=== PATIENT | male | born 1955 | race Caucasian/White ===

== ENCOUNTER 2019-07-03 14:16 | Emergency (ER) | payer SELFPAY ==
[~2019-07-03] VITALS: Ht 182.8 cm; Wt 86.2 kg
--- NOTE | ~2019-07-03 | EKG ---
[place], [place] ELECTROCARDIOGRAM REPORT NAME: MIRIAM CABALLERO UNIT #: [id number] ROOM: DOCTOR: EPIPHANY DRAFT REPORT BIRTHDATE: [birth year] [facility] Test Date: 2019-07-03 Test Time: 14:18:00 Pat Name: MIRIAM CABALLERO Department: er Room: Gender: Nail Sticker: : 1955 Requested By: LINDA MITCHELL Order Number: [id number] Reading MD: Silvano Faustin MD Measurements Intervals [place] Rate: 73 P: 6 ID: 164 QRS: -25 QRSD: 90 T: 55 QT: 388 QTc: 428 Interpretive Statements Sinus rhythm Electronically Signed On 07-04-2019 7:47:53 PDT by Silvano Faustin MD CM:EKGRPT:ELECTROCARDIOGRAM REPORT [id number] LINDA MOTLEY DRAFT REPORT LINDA MITCHELL M.D.
[2019-07-03 15:30] LABS: BASO # 0.1 10*3/uL (0.0-0.1); BASO % 0.6 % (0.0-1.0); EOS # 0.1 10*3/uL (0.0-0.4); EOS % 0.8 % (1.0-4.0); HEMOGLOBIN 18.1 g/dl (14.0-18.0); LYMPH # 2.8 10*3/uL (1.3-4.4); LYMPH % 29.5 % (27.0-41.0); MEAN CELL VOLUME 96.2 fl (80.0-94.0); MEAN CORPUSCULAR HGB 32.8 pg (27.0-31.0); MEAN CORPUSCULAR HGB CONC 34.2 g/dl (33.0-37.0); MEAN PLATELET VOLUME 9.4 fl (9.6-12.3); MONO # 0.6 10*3/uL (0.1-1.0); MONO % 6.8 % (3.0-9.0); NEUT # 5.8 10*3/uL (2.3-7.9); PLATELET COUNT AUTOMATED 255 10*3/uL (130-400); RED BLOOD COUNT 5.51 10*6/uL (4.50-5.90); WHITE BLOOD COUNT 9.4 10*3/uL (4.8-10.8)
[2019-07-03 15:40] LABS: INTERNATIONAL NORM RATIO 0.9 (2.0-3.5)
[2019-07-03 15:45] LABS: ACETAMINOPHEN (TYLENOL) < 5.0 ug/ml (10-30); ETHYL ALCOHOL < 3.0 mg/dl (<3)
[2019-07-03 15:47] LABS: ALBUMIN 3.6 gm/dl (3.1-4.5); ALKALINE PHOSPHATASE 85 U/L (45-117); BUN 9 mg/dl (7-24); CHLORIDE 105 mmol/L (98-107); CREATININE 0.94 mg/dL (0.70-1.30); POTASSIUM 3.5 mmol/L (3.5-5.1); SGOT/AST 14 IU/L (3-35); SGPT/ALT 22 U/L (12-78); SODIUM 136 mmol/L (136-145)
[2019-07-03 15:48] LABS: TROPONIN I < 0.015 ng/ml (<0.045)
[2019-07-03 15:54] LABS: BILIRUBIN NEGATIVE (NEGATIVE); BLOOD NEGATIVE (NEGATIVE); CLARITY CLEAR (CLEAR); COLOR YELLOW (YELLOW); GLUCOSE NEGATIVE (NEGATIVE); KETONE NEGATIVE (NEGATIVE); LEUKO ESTERASE NEGATIVE (NEGATIVE); NITRITE NEGATIVE (NEGATIVE); PH 5.5 (5.0-9.0); UROBILINOGEN 0.2 E.U./dl (0.2-1.0)
[2019-07-03 16:04] LABS: URINE AMPHETAMINES < 1000 (1000ng/ml); URINE BARBITURATES < 200 (200ng/ml); URINE BENZODIAZEPINES < 200 (200ng/ml); URINE CANNABINOIDS (THC) > 50 (50ng/ml); URINE COCAINE < 300 (300ng/ml); URINE METHADONE < 300 (300ng/ml); URINE OPIATES < 300 (300ng/ml)
[2019-07-03 16:22] LABS: URINE PHENCYCLIDINE < 25 (25ng/ml)
== END 2019-07-03 16:15 | disposition left against medical advice (07) ==
LOC: ED 14:16
PROVIDERS: Emergency Medicine; Nurse Practitioner Family
DX: C79.9 Secondary malignant neoplasm of unspecified site (principal); C79.31 Secondary malignant neoplasm of brain; F17.200 Nicotine dependence, unspecified, uncomplicated

== ENCOUNTER 2019-08-07 23:03 | Inpatient (IN) | payer SELFPAY ==
[~2019-08-07] VITALS: Ht 182.8 cm; Wt 73.8 kg
--- NOTE | ~2019-08-07 | EKG ---
[place], [place] ELECTROCARDIOGRAM REPORT NAME: MIRIAM CABALLERO UNIT #: [id number] ROOM: 509 DOCTOR: EPIPHANY DRAFT REPORT BIRTHDATE: [birth year] [facility] Test Date: 2019-08-07 Test Time: 23:33:37 Pat Name: MIRIAM CABALLERO Department: Room: 509 Gender: M Project Manager Senior: Maggie Henley : 1955 Requested By: RADHA SHIN Order Number: [id number] Reading MD: Jasper Carias MD Measurements Intervals [place] Rate: 76 P: 49 DC: 185 QRS: -15 QRSD: 84 T: 57 QT: 385 QTc: 433 Interpretive Statements Sinus rhythm Borderline left axis deviation Compared to ECG 07/03/2019 14:18:00 No significant changes Electronically Signed On 08-08-2019 8:51:00 PST by Jasper Carias MD CM:EKGRPT:ELECTROCARDIOGRAM REPORT [id number] RADHA SHIN MD EPIPHANY DRAFT REPORT RADHA SHIN MD
[2019-08-07 23:08] VITALS: BP 125/66
[2019-08-07 23:42] LABS: BASO # 0.1 10*3/uL (0.0-0.1); BASO % 0.6 % (0.0-1.0); EOS # 0.1 10*3/uL (0.0-0.4); EOS % 1.4 % (1.0-4.0); HEMATOCRIT 47.9 % (42.0-52.0); HEMOGLOBIN 16.9 g/dl (14.0-18.0); LYMPH # 2.3 10*3/uL (1.3-4.4); LYMPH % 23.1 % (27.0-41.0); MEAN CORPUSCULAR HGB 32.8 pg (27.0-31.0); MEAN CORPUSCULAR HGB CONC 35.3 g/dl (33.0-37.0); MEAN PLATELET VOLUME 9.3 fl (9.6-12.3); MONO # 0.8 10*3/uL (0.1-1.0); MONO % 7.6 % (3.0-9.0); NEUT # 6.7 10*3/uL (2.3-7.9); PLATELET COUNT AUTOMATED 270 10*3/uL (130-400); RED BLOOD COUNT 5.15 10*6/uL (4.50-5.90); RED CELL DISTRI WIDTH 12.4 % (0-14.5)
[2019-08-07 23:56] LABS: ACT PARTIAL THROMBO TIME 26.5 SECONDS (20.0-32.1)
[2019-08-08] VITALS (8 sets, daily range): BP systolic 115–159; BP diastolic 42–92
[2019-08-08] LABS: ALBUMIN 3.6 gm/dl (3.1-4.5); ALKALINE PHOSPHATASE 87 U/L (45-117); BUN 11 mg/dl (7-24); CHLORIDE 101 mmol/L (98-107); CREATININE 1.08 mg/dL (0.70-1.30); LIPASE 85 U/L (73-393); POTASSIUM 3.9 mmol/L (3.5-5.1); SGOT/AST 12 IU/L (3-35); SGPT/ALT 22 U/L (12-78); SODIUM 135 mmol/L (136-145); TOTAL PROTEIN 7.2 gm/dL (6.4-8.2); TROPONIN I < 0.015 ng/ml (<0.045)
--- NOTE | 2019-08-08 00:05 | NUR ---
PT GIVEN URINAL AND ATTEMPTING TO PROVIDE SPECIMAN
[2019-08-08 00:53] LABS: BILIRUBIN 1+ (NEGATIVE); BLOOD NEGATIVE (NEGATIVE); CLARITY CLEAR (CLEAR); COLOR YELLOW (YELLOW); GLUCOSE NEGATIVE (NEGATIVE); KETONE NEGATIVE (NEGATIVE); LEUKO ESTERASE NEGATIVE (NEGATIVE); NITRITE NEGATIVE (NEGATIVE)
[2019-08-08 01:02] LABS: BACTERIA 1+; EPITHELIAL CELLS 0-2; FINE GRANULAR CAST 0-2; HYALINE CAST 0-2; MUCOUS 1+; RBC 0-2 rbc/hpf (0-2)
--- NOTE | 2019-08-08 02:00 | NUR ---
PT LEFT CONTACT NUMBER TO BE REACHED AT [phone]
--- NOTE | 2019-08-08 02:52 | NUR ---
SPOKE TO ALEK, GIRLFRIEND TO PT'S SON MAXIMUS CORONA, UPDATED PT STATUS WITH ADMISSION. ALEK TO TELL MAXIMUS.
--- NOTE | 2019-08-08 04:51 | NUR ---
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 Chief complaint is WAS FOUND ON FLOOR BY FAMILY COVERED IN VOMIT. Patient arrived via CART WITH RN from ER. Monitor applied. Initial assessment completed. Vital signs taken and recorded. See assessment for past medical history, medications and allergies. Patient and/or family oriented to unit. [facility]. Clothing/patient valuable form completed. FABIOLA NAJERA
--- NOTE | 2019-08-08 04:57 | NUR ---
DR BENJAMIN MADE AWARE OF SCAR ON HIS COCCYX AREA, STATES SHE WILL SEE IT WHEN ABLE
--- NOTE | 2019-08-08 05:13 | NUR ---
PATIENT VERY CONFUSED, AGITATED WE ARE TRING TO CLEAN HIM UP. REFUSING TO REMOVE SOILED UNDERWEAR. WHILE BATHING A POSSIBLE WOUND/SCAR WAS NOTED ON COCCYX BUT PATIENT IS REFUSING TO ALLOW US TO PHOTOGRAPH IT. NO FAMILY IS WIT PATIENT AT THIS TIME, AND PATIENT IS BECOMING INCREASINGLY AGITATED WHEN ASKED ABOUT PHOTOS.
[2019-08-08 06:27] LABS: BASO # 0.1 10*3/uL (0.0-0.1); BASO % 0.5 % (0.0-1.0); EOS # 0.1 10*3/uL (0.0-0.4); EOS % 0.7 % (1.0-4.0); HEMOGLOBIN 17.1 g/dl (14.0-18.0); LYMPH # 1.5 10*3/uL (1.3-4.4); LYMPH % 13.9 % (27.0-41.0); MEAN CELL VOLUME 91.4 fl (80.0-94.0); MEAN CORPUSCULAR HGB 31.9 pg (27.0-31.0); MEAN CORPUSCULAR HGB CONC 34.9 g/dl (33.0-37.0); MEAN PLATELET VOLUME 9.2 fl (9.6-12.3); MONO # 0.4 10*3/uL (0.1-1.0); MONO % 3.4 % (3.0-9.0); NEUT # 8.5 10*3/uL (2.3-7.9); NEUT % 81.3 % (47.0-73.0); PLATELET COUNT AUTOMATED 290 10*3/uL (130-400); RED BLOOD COUNT 5.36 10*6/uL (4.50-5.90); RED CELL DISTRI WIDTH 12.3 % (0-14.5); WHITE BLOOD COUNT 10.4 10*3/uL (4.8-10.8)
[2019-08-08 06:47] LABS: BUN 11 mg/dl (7-24); CHLORIDE 102 mmol/L (98-107); CHOLESTEROL 165 mg/dL (<200); CREATININE 0.89 mg/dL (0.70-1.30); HDL CHOLESTEROL 28 mg/dl (40-60); LDL CHOLESTEROL 118 mg/dL (9-159); PHOSPHOROUS 2.6 mg/dL (2.5-4.9); POTASSIUM 3.9 mmol/L (3.5-5.1); SODIUM 135 mmol/L (136-145); TRIGLYCERIDES 93 mg/dl (<150); VLDL CHOLESTEROL 19 mg/dL (6-40)
[2019-08-08 06:55] LABS: FREE T4 1.46 ng/dl (0.76-1.46)
[2019-08-08 08:37] LABS: VITAMIN D, 25-HYDROXY 16.1 ng/mL (30-100)
--- NOTE | 2019-08-08 13:07 | NUR ---
Patient resting quietly with no c/o discomfort. Respirations easy and regular. Vital signs stable. No overt distress. DAMIEN GOMEZ
--- NOTE | 2019-08-08 20:37 | NUR ---
24 HR chart check completed.
[2019-08-09] VITALS: BP 129/69
[2019-08-09 06:40] LABS: BASO # 0.1 10*3/uL (0.0-0.1); BASO % 0.5 % (0.0-1.0); EOS # 0.1 10*3/uL (0.0-0.4); HEMATOCRIT 47.4 % (42.0-52.0); HEMOGLOBIN 16.6 g/dl (14.0-18.0); LYMPH # 4.9 10*3/uL (1.3-4.4); LYMPH % 39.1 % (27.0-41.0); MEAN CORPUSCULAR HGB 31.9 pg (27.0-31.0); MEAN PLATELET VOLUME 9.3 fl (9.6-12.3); MONO # 0.9 10*3/uL (0.1-1.0); MONO % 7.3 % (3.0-9.0); NEUT # 6.5 10*3/uL (2.3-7.9); NEUT % 51.9 % (47.0-73.0); PLATELET COUNT AUTOMATED 296 10*3/uL (130-400); RED BLOOD COUNT 5.21 10*6/uL (4.50-5.90); RED CELL DISTRI WIDTH 12.3 % (0-14.5); WHITE BLOOD COUNT 12.5 10*3/uL (4.8-10.8)
[2019-08-09 06:52] LABS: BUN 16 mg/dl (7-24); CHLORIDE 104 mmol/L (98-107); CREATININE 0.82 mg/dL (0.70-1.30); POTASSIUM 3.5 mmol/L (3.5-5.1); SODIUM 137 mmol/L (136-145)
--- NOTE | 2019-08-09 07:57 | NUR ---
Nursing screen received and Occupational Therapy referral received. Thank you. Daysi Sosa OTR/l
[2019-08-09 08:00] VITALS: BP 149/89
--- NOTE | 2019-08-09 08:26 | NUR ---
PHYSICAL THERAPY Screen received, PT orders received for evaluatin will follow, thank you. Kathrin Villanueva PT
--- NOTE | 2019-08-09 08:55 | NUR ---
PHYSICAL THERAPY Nursing asked to place therapy on hold at this time, "let him sleep." Nursing reports she hasn't woken Pt up to take his medications yet. Will attempt at a later time when appropriate. Thank you Vale Hammond, PT, DPT
--- NOTE | 2019-08-09 09:52 | NUR ---
MIRIAM CABALLERO [id number] Please refer to the physician's history and physical for past medical history, comorbid conditions, and allergies. 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 PATIENT UNSURE HOW HE GOT THE SCAR. DAUGHTER IN LAW IN ROOM AT TIME OF ASSESSMENT AND WAS UNSURE OF HOW THE SCAR OCCURED. Surface the patient is resting on: Isoflex SKIN PREVENTION RECOMMENDATION: 1. Pressure redistribution support surface as appropriate 2. Elevate heels 3. Remove boots/TEDS every shift and reapply 4. Head of bed 30 degrees as tolerated 5. Assess nutrition and hydration 6. Manage moisture 7. Avoid the use of containment devices while in bed 8. Use absorptive products on surfaces limit layers of linens on bed 9. Turn and reposition every 1-2 hours in bed and every 1 hour in chair as tolerated 10. Weight shifts every 15 minutes while up in chair 11. Offloading with pillows or device to keep heels elevated off bed 12. Monitor skin at least every shift 13. Inspect under medical devices twice a day WOUND TREATMENT RECOMMENDATIONS: CLEANSE BUTTOCKS AND COCCYX WITH SOAP AND WATER PAT DRY. APPLY HYDRAGUARD EVERY SHIFT AND PRN FOR PROTECTION.
--- NOTE | 2019-08-09 10:25 | NUR ---
Occupational Therapy evaluation completed on 5 with full eval to follow. Precautions include fall risk, impaired cognition; insight,orientation to time,impaired memory,moderate complexity level 32004 via chart review, testinga and evaluation. Recommend OT per POC and SNF, if refuses, then home with 24 hr supervision and assist for max safety and compliance in the home. Thank you. Paulette Sosa OTR/L
--- NOTE | 2019-08-09 10:29 | NUR ---
PHYSICAL THERAPY physical therapy evaluation completed, 5E. Full details/evaluation to follow. Moderate complexity determined after evaluation/chart review, 230[address]. PT to work on gait, strength, balance, safety and endurance. Recommending home with 24 hour assistance or SNF at discharge due to impaired cognition. Thank you Vale Hammond, PT, DPT
--- NOTE | 2019-08-09 10:30 | NUR ---
Charge Account Identification Clerk in to talk to patient. Patient states lives at home alone with . There are 0 steps in the home. Physician: no family physician Pharmacy: [facility] Home health services: none Patient's level of ADLs: INDEPENDENT Patient has working utilities: yes DME: none Follow-up physician's appointment after d/c: will be made by the hospitalist nurse director upon discharge Does patient want to access PORTAL?: no Discharge plan discussed with patient. [place] with no family checking in on him. He is independent in his ADLs and ambulation. Discussed home health care services and he denies any home needs at this time. Discussed him not having insurance and he does not. Awaiting response from Jyothi in [employer]. When medically stable he will be discharged to home. He is unsure of how he will get home. KMI SMITH
--- NOTE | 2019-08-09 11:43 | NUR ---
Dr. Sanchez notified of wound care recommendations.
[2019-08-09 12:00] VITALS: BP 145/67
--- NOTE | 2019-08-09 14:45 | NUR ---
STONE OPERATOR spoke with the patients son. He stated that the patient as insurance through the [facility]. STONE OPERATOR reached out to the [facility] in [place] and left message for return call to see if the patient is service connected. -ESDRAS Davidson
--- NOTE | 2019-08-09 15:30 | NUR ---
Discussed short term SNF and he refuses stating he will return home.
[2019-08-09 16:00] VITALS: BP 119/52
[2019-08-09 20:00] VITALS: BP 147/86
--- NOTE | 2019-08-09 20:19 | NUR ---
24 HR chart check completed.
--- NOTE | 2019-08-09 21:00 | NUR ---
CLIMBING OOB. BED ALARM RINGING. PATIENT UNSTEADY. ASSIST TO BR AND RETURNED TO BED. CALL LIGHT WITHIN REACH. BED ALARM APPLIED FOR SAFETY
--- NOTE | 2019-08-09 21:34 | NUR ---
MEDICATED WITH RESTORIL PER PRN ORDER TO ASSIST WITH SLEEP. RESPIRATIONS EASY. CALL LIGHT WITHIN REACH. BED ALARM MAINTAINED
--- NOTE | 2019-08-09 23:00 | NUR ---
MEDS EFFECTIVE. SLEEPING. RESPIRATIONS EASY. BED ALARM MAINTAINED
[2019-08-10] VITALS: BP 145/83
--- NOTE | 2019-08-10 00:30 | NUR ---
AGAIN CLIMBING OOB. ASSISTED BACK TO BED AND POSITIONED FOR COMFORT. CALL LIGHT WITHIN REACH. BED ALARM MAINTAINED FOR SAFETY
--- NOTE | 2019-08-10 06:00 | NUR ---
RESTED THROUGHOUT NIGHT WITH NO DISTRESS NOTED. RESPIRATIONS EASY. CALL LIGHT WITHIN REACH. NO VOICED COMPLAINTS THIS SHIFT. BED ALARM MAINTAINED FOR SAFETY
[2019-08-10 06:53] LABS: BASO # 0.1 10*3/uL (0.0-0.1); BASO % 0.7 % (0.0-1.0); EOS # 0.1 10*3/uL (0.0-0.4); EOS % 1.5 % (1.0-4.0); HEMATOCRIT 50.2 % (42.0-52.0); LYMPH # 3.7 10*3/uL (1.3-4.4); LYMPH % 38.8 % (27.0-41.0); MEAN CORPUSCULAR HGB 31.8 pg (27.0-31.0); MEAN CORPUSCULAR HGB CONC 33.9 g/dl (33.0-37.0); MEAN PLATELET VOLUME 9.6 fl (9.6-12.3); MONO # 0.8 10*3/uL (0.1-1.0); MONO % 8.4 % (3.0-9.0); NEUT # 4.8 10*3/uL (2.3-7.9); NEUT % 50.3 % (47.0-73.0); PLATELET COUNT AUTOMATED 285 10*3/uL (130-400); RED BLOOD COUNT 5.34 10*6/uL (4.50-5.90); RED CELL DISTRI WIDTH 12.6 % (0-14.5); WHITE BLOOD COUNT 9.5 10*3/uL (4.8-10.8)
[2019-08-10 07:12] LABS: BUN 15 mg/dl (7-24); CHLORIDE 106 mmol/L (98-107); CREATININE 0.98 mg/dL (0.70-1.30); SODIUM 140 mmol/L (136-145)
--- NOTE | 2019-08-10 08:00 | NUR ---
SONJA SETS OFF BED ALARM QUITE OFTEN. DOES NOT REMEMBER TO CALL FOR HELP. PATIENT IS CONFUSED TO TIME HE THINKS ITS 1979. PATIENT HAD DIARRHEA AND SOILED HIMSELF BED AND FLOOR. ASSISTED WITH CLEAN UP AND PATIENT IS BACK IN BED WITH CALL LIGHT IN HAND AND BED ALARM BACK ON.
--- NOTE | 2019-08-10 08:16 | NUR ---
ESDRAS spoke with the [facility]. Patient has not been seen by their PCP since 2017. Patient does not appear to be service connected. [facility] would have [facility]. -ESDRAS Davidson
[2019-08-10 09:00] VITALS: BP 145/84
--- NOTE | 2019-08-10 10:15 | NUR ---
OT NOTE Pt was seen this A.M. 1:1 for 15 minute OT session. Upon arrival pt was supine in bed. Pt identified by name and and had no complaints at this time. Pt transferred supine to sit EOB with SBA. While sitting EOB pt donned B socks with CGA due to being impulsive and also having F+/G- sitting balance throughout. Sit to stand completed from bed level with CGA for safety followed by functional mobility to the bathroom with CGA, pt had two LOB throughout due to being impuslive that required Praneeth to correct. Pt transferred on/off standard commode with Praneeth. Pt then stood sink side while washing his hands with CGA, pt had one LOB while reaching for paper towels that required Praneeth to correct. Challenged pt's static standing tolerance needed for increased I in self care tasks and functional transfers. Pt was able to tolerate aprox 4 minutes before sitting due to fatigue. Throughout entire session pt required constant verbal prompts for safety concerns. Pt had poor carry over throughout. Pt was left supine in bed with call light in hand, tray table in place, and bed alarm activated for safety. Continue with rec D/C plan to SNF or 24 hour supervision/assist. CATRINA Dill/Perry
--- NOTE | 2019-08-10 10:27 | NUR ---
PHYSICAL THERAPY Patient presented ottherapy in supine with head of bed flat and bed alarm activated. Patient gives informed consent for treatment. Patient was identified by name and on wristband. Patient performed supine to sitting at EOB transfer and sit to stand transfer from EOB with SBA. Patient performed ambulation 60' x 3 with no assistive device and CGA X 1 WITH 4 MINOR EPISODES of LOB. Patient sit to stand from low chair in room with CGA X 1. Patient performed transfer to supine in bed with SBA. Patient was left in supine in bed with head of bed flat and bed alarm activated. Patient's call light within reach. Patient was 1:1 with this COMPUTATIONAL CHEMIST for 20 minutes total. RUTHIE BROWN COMPUTATIONAL CHEMIST
--- NOTE | 2019-08-10 10:30 | NUR ---
Grain Sacker in to see patient. No new needs or request at this time. He denies any home needs. Discussed short term SNF and home health care services and he refuses either. Radha did apply for Medicaid for patient. He may be overresourced. When medically stable he will be discharged to home. His family will transport on discharge.
[2019-08-10 12:00] VITALS: BP 146/85
--- NOTE | 2019-08-10 12:04 | NUR ---
DR. PAREDES AWARE PATIENT PULLED OUT IV. OK TO LEAVE OUT.
[2019-08-10] MEDS ORDERED: VITAMIN D32000 UNI1 PO (12:06)
--- NOTE | 2019-08-10 14:00 | NUR ---
PATIENT TO BE DISCHARGED TO HOME UNABLE TO CONTACT FAMILY FOR RIDE AT THIS TIME.
--- NOTE | 2019-08-10 15:19 | NUR ---
LEFT MESSAGE ON BROTHER PHONE WELL SONS.
--- NOTE | 2019-08-10 15:21 | NUR ---
PATIENT DAUGTHER IN LAW HERE TO GET PATIENT.
--- NOTE | 2019-08-10 15:47 | NUR ---
OCCUPATIONAL THERAPY CO-SIGN I approve of the Occupational Therapy notes written above. JOLENE PIMENTEL OTR/Perry
--- NOTE | 2019-08-11 07:48 | NUR ---
PHYSICAL THERAPY CO-SIGN I approve of the Physical Therapy notes written above. Kathrin Villanueva PT
== END 2019-08-10 15:41 | disposition home or self-care (01) | DRG 54 ==
LOC: ED 23:03 → EDHOLD 08-08 02:24 → 5E 08-08 02:24
PROVIDERS: Emergency Medicine Emergency Medical Services; Internal Medicine; ADMIT Internal Medicine
DX: C79.31 Secondary malignant neoplasm of brain (principal); G93.41 Metabolic encephalopathy; E87.1 Hypo-osmolality and hyponatremia; F17.210 Nicotine dependence, cigarettes, uncomplicated; C80.1 Malignant (primary) neoplasm, unspecified; R62.7 Adult failure to thrive; R73.9 Hyperglycemia, unspecified; R82.71 Bacteriuria; Z71.6 Tobacco abuse counseling; Z91.040 Latex allergy status

== ENCOUNTER → 2019-08-26 | Outpatient (CLI) | payer SELFPAY ==
[~2019-08-26] MED LIST: VITAMIN D32000 UNI1 PO
--- NOTE | 2019-08-26 15:31 | NUR ---
PHYSICAL METEOROLOGIST was called down to the [facility] to speak with the patient and his family. Patients son Garrett Velez and two other female family members were present. The patient was seated and did not speak during this PHYSICAL METEOROLOGIST interaction with the family. Patients son is concerned because the patient does have a Self Pay status. Patient son stated the patient recently moved into his home after not having contact for over two years. He stated that he does not know what assest the patient may have. The patient is unable to sign any documents granting his son to access this information. The patient is unable to sign DPOA-HC or DPOA-Finanical papers in order to allow the son to gain access to this information due to his health (per Dr. Martin to the brain and confusion). During patients last visit to this facility he has not [facility] by the [facility]. He would have to re establish with them in order to receive any benefits. Unless the patient is 75% service connected there may be little benefits available to the patient. ESDRAS [facility] stated the [facility] that was applied for last admission is still pending. They need documents from the [facility]. ESDRAS reached out to Ilda [place] [facility] to ask about the best route for the family to obtain guardianship of the patient, she did not answer. ESDRAS will reach out to her tomorrow morning. -ESDRAS Davidson
--- NOTE | 2019-08-30 07:23 | NUR ---
PLASTIC CABLEMAKING MACHINE OPERATOR spoke with [facility]a [place]-[facility]. She stated a Statement of Expert Evaluation would have to be completed to in order for the patients family to obtain emergency guardianship of the patient. PLASTIC CABLEMAKING MACHINE OPERATOR contacted Dr. Kylah Alba to see if she has any blank copies this PLASTIC CABLEMAKING MACHINE OPERATOR could provide to Dr. Melchor to complete. ESDRAS to follow. -ESDRAS Davidson
--- NOTE | 2019-09-03 08:21 | NUR ---
SENIOR BRAND MANAGER received the Statement of Expert Evaluation. SENIOR BRAND MANAGER contacted APS and filed report. SENIOR BRAND MANAGER will fax Statement of Expert to [facility]. SENIOR BRAND MANAGER will contact the patients family. -ESDRAS Davidson
--- NOTE | 2019-09-03 09:44 | NUR ---
ESDRAS received call from Lupe [facility]. Lupe received the Statement of Expert Eval and will be contacting the family to facility guardianship of the patient. -ESDRAS Davidson
== END | disposition home or self-care (01) ==
LOC: RESCLI 00:15
DX: C79.31 Secondary malignant neoplasm of brain (principal); E46 Unspecified protein-calorie malnutrition; E55.9 Vitamin D deficiency, unspecified; Z79.899 Other long term (current) drug therapy; Z72.0 Tobacco use

== ENCOUNTER → 2019-08-26 | Emergency (ER) | payer SELFPAY ==
[~2019-08-26] VITALS: Ht 182.8 cm; Wt 63.5 kg
--- NOTE | ~2019-08-26 | EKG ---
[place], [place] ELECTROCARDIOGRAM REPORT NAME: MIRIAM CABALLERO UNIT #: [id number] ROOM: DOCTOR: EPIPHANY DRAFT REPORT BIRTHDATE: [birth year] [facility] Test Date: 2019-08-26 Test Time: 15:13:05 Pat Name: MIRIAM CABALLERO Department: Room: Gender: Yarn Finisher: : 1955 Requested By: BERT LARKIN Order Number: [id number] Reading MD: Mason Burt MD Measurements Intervals [place] Rate: 71 P: 5 AK: 176 QRS: -25 QRSD: 88 T: 55 QT: 389 QTc: 423 Interpretive Statements Sinus rhythm Borderline left axis deviation Compared to ECG 08/07/2019 23:33:37 No significant changes Electronically Signed On 08-27-2019 4:30:39 PST by Mason Burt MD CM:EKGRPT:ELECTROCARDIOGRAM REPORT [id number] BERT CARLOS DRAFT REPORT BERT LARKIN DO
[2019-08-26 15:11] LABS: BASO # 0.1 10*3/uL (0.0-0.1); BASO % 0.6 % (0.0-1.0); EOS # 0.3 10*3/uL (0.0-0.4); HEMATOCRIT 45.8 % (42.0-52.0); HEMOGLOBIN 15.7 g/dl (14.0-18.0); LYMPH # 2.7 10*3/uL (1.3-4.4); LYMPH % 29.3 % (27.0-41.0); MEAN CELL VOLUME 93.9 fl (80.0-94.0); MEAN CORPUSCULAR HGB 32.2 pg (27.0-31.0); MEAN CORPUSCULAR HGB CONC 34.3 g/dl (33.0-37.0); MEAN PLATELET VOLUME 9.2 fl (9.6-12.3); MONO # 0.8 10*3/uL (0.1-1.0); MONO % 8.6 % (3.0-9.0); NEUT # 5.4 10*3/uL (2.3-7.9); NEUT % 58.1 % (47.0-73.0); PLATELET COUNT AUTOMATED 238 10*3/uL (130-400); RED BLOOD COUNT 4.88 10*6/uL (4.50-5.90); RED CELL DISTRI WIDTH 12.8 % (0-14.5); WHITE BLOOD COUNT 9.3 10*3/uL (4.8-10.8)
[2019-08-26 15:22] LABS: ACT PARTIAL THROMBO TIME 28.3 SECONDS (20.0-32.1); INTERNATIONAL NORM RATIO 0.9 (2.0-3.5)
[2019-08-26 15:27] LABS: ALBUMIN 3.9 gm/dl (3.1-4.5); ALKALINE PHOSPHATASE 86 U/L (45-117); BUN 18 mg/dl (7-24); CHLORIDE 105 mmol/L (98-107); CREATININE 0.98 mg/dL (0.70-1.30); LIPASE 105 U/L (73-393); POTASSIUM 3.8 mmol/L (3.5-5.1); SGOT/AST 19 IU/L (3-35); SGPT/ALT 26 U/L (12-78); SODIUM 138 mmol/L (136-145); TOTAL PROTEIN 7.5 gm/dL (6.4-8.2)
[2019-08-26 15:29] LABS: TROPONIN I < 0.015 ng/ml (<0.045)
[2019-08-26 15:37] LABS: BILIRUBIN 1+ (NEGATIVE); BLOOD NEGATIVE (NEGATIVE); CLARITY CLEAR (CLEAR); GLUCOSE NEGATIVE (NEGATIVE); KETONE NEGATIVE (NEGATIVE); LEUKO ESTERASE NEGATIVE (NEGATIVE); NITRITE NEGATIVE (NEGATIVE); SPECIFIC GRAVITY >= 1.030 (1.005-1.030); UROBILINOGEN 0.2 E.U./dl (0.2-1.0)
[2019-08-26 15:38] LABS: COLOR YELLOW (YELLOW)
[2019-08-26 16:04] LABS: MUCOUS 1+
== END ==
LOC: ED 14:41
PROVIDERS: Emergency Medicine
DX: C79.9 Secondary malignant neoplasm of unspecified site (principal); R79.1 Abnormal coagulation profile; I10 Essential (primary) hypertension; F17.200 Nicotine dependence, unspecified, uncomplicated